=== PATIENT | female | born 1950 | race Caucasian/White ===

== ENCOUNTER 2020-01-23 14:02 | Outpatient (CLI) | payer MEDICARE, MEDICAID ==
[~2020-01-23 14:02] MED LIST: ABILIFY10 MG ORAL; ADALAT CC60 MG PO; ASPIRIN EC81 MG ORAL; BISACODYL5 MG ORAL; COLACE100 MG PO; CYMBALTA30 MG ORAL; FISH OIL500 MG PO; METHADONE HCL10 MG PO; MULTIVITAMINS1 EAC2 ORAL; NEURONTIN300 MG PO; NORVASC10 MG ORAL; RESTORIL7.5 MG ORAL; RESTORIL7.5 MG PO; RISPERDAL2 MG PO; TRICOR54 MG ORAL; VITAMIN C500 M1 ORAL; VITAMIN D1000 UNI1 ORAL
[2020-01-23 14:07] VITALS: BP 125/88
[2020-01-23] MEDS ORDERED: VASCEPA1 GM PO (14:14)
[2020-01-23] MEDS ORDERED: METHADONE HCL5 MG ORAL (14:14)
[2020-01-23] MEDS ORDERED: PRAVASTATIN SOD20 M1 ORAL (14:14)
--- NOTE | 2020-01-23 18:00 | Consultation ---
DATE OF CONSULTATION: 01/23/2020 GASTROLOGY CONSULTATION CHIEF COMPLAINT: Abdominal pain and diarrhea. HISTORY OF PRESENT ILLNESS: This is a very pleasant 69-year-old female known to me from 4 years ago. I have not seen her for over 4 years. She has been to the clinic complaining of a few days of watery diarrhea, severe abdominal pain, bloating, acid reflux, and heartburn. According to the patient, in 2018 she was admitted to [facility], where she had an endoscopy and colonoscopy. At that time, . Endoscopy showed evidence of significant candidal esophagitis. The patient apparently was doing well until a few days ago when she started having these symptoms. PAST MEDICAL HISTORY: 1. Hepatitis C, status post treatment. 2. Chronic GERD. 3. Gastritis. 4. History of pancreatic cyst. 5. Candidal esophagitis. ALLERGIES: No known drug allergies. MEDICATIONS: See medication reconciliation list. SOCIAL HISTORY: The patient denies any tobacco, alcohol, or drug abuse. Lives with her at home. FAMILY HISTORY: Noncontributory. REVIEW OF SYSTEMS: As above. PHYSICAL EXAMINATION: VITAL SIGNS: Temperature is 97, blood pressure is 125/88, pulse is 111, respirations 20. HEENT: Normocephalic and atraumatic. Sclerae anicteric. NECK: Supple. No obvious lymphadenopathy. CARDIOVASCULAR: Tachy. Regular rate plus S1-S2 normal. LUNGS: Clear to auscultation bilaterally ABDOMEN: Soft. Bowel sounds are present. There is no obvious tenderness to palpation. No rebound. No guarding. No peritoneal sign. EXTREMITIES: No cyanosis. No clubbing. No edema. ASSESSMENT/PLAN: A 69-year-old female with few days of diarrhea. According to her, [employer] was working for her well when this happened to her before and she wanted Flagyl. We will give her 500 mg t.i.d. for 10 days. Also, the patient complained of severe reflux disease. We will start the patient on omeprazole 40 mg daily. The patient is to come back in the office for followup after completion of treatment. Flo Hill M.D. DR: BLAIR JOB#: [id number] CC:
== END 2020-01-23 16:02 | disposition home or self-care (01) ==
LOC: PAN 14:02
DX: R10.9 Unspecified abdominal pain (principal); R19.7 Diarrhea, unspecified; Z86.19 Personal history of other infectious and parasitic diseases; K21.00 Gastro-esophageal reflux disease with esophagitis, without bleeding; R00.0 Tachycardia, unspecified
CPT/HCPCS: 99212

== ENCOUNTER 2020-03-26 13:59 | Outpatient (CLI) | payer MEDICARE, MEDICAID ==
[~2020-03-26 13:59] MED LIST changes: +METHADONE HCL5 MG ORAL; +PRAVASTATIN SOD20 M1 ORAL; +VASCEPA1 GM PO
[2020-03-26 14:13] VITALS: BP 130/80
[2020-03-27] MEDS ORDERED: ATIVAN1 MG ORAL (09:03)
== END 2020-03-26 15:17 | disposition home or self-care (01) ==
LOC: PAN 13:59
DX: R10.9 Unspecified abdominal pain (principal)
CPT/HCPCS: 99212

== ENCOUNTER 2020-03-31 07:36 | Day surgery (SDC) | payer MEDICARE, MEDICAID ==
[~2020-03-31] VITALS: Ht 162.6 cm; Wt 75.3 kg
[2020-03-31] VITALS (8 sets, daily range): BP systolic 94–123; BP diastolic 60–72
--- NOTE | 2020-03-31 07:35 | Anethesia Preoperative Eval ---
Anesthesia Pre-op PMH/ROS General Date of Evaluation: Mar 31, 2020 Time of Evaluation: 07:35 Anesthesiologist: enid ASA Score: ASA 4 Mallampati Score Class I : Soft palate, uvula, fauces, pillars visible Class II: Soft palate, uvula, fauces visible Class III: Soft palate, base of uvula visible Class IV: Only hard plate visible Mallampati Classification: Class II Surgeon: wilbur Diagnosis: gerd, pancreatic cyst Surgical Procedure: egd/eus Anesthesia History: none Social History: current smoker Family History: no anesthesia problems Allergies: Coded Allergies: No Known Allergies (Unverified , 05/03/12) Medications: see eMAR Patient NPO?: Yes Past Medical History Cardiovascular: Reports: HTN, other - hypercholesterolemia Gastrointestinal/Genitourinary: Reports: other - pancreatic cyst, esophagitis, gallbladder disease, hepatitis, cirrhosis, hx/o anuria, fibroids, abdominal pain Neurologic/Psychiatric: Reports: CVA, depression/anxiety Endocrine: Reports: hypothyroidism HEENT: Reports: other - decreased visual acuity Musculoskeletal/Integumentary: Reports: other PSxH Narrative: thyroidectomy Anesthesia Pre-op Phys. Exam Physician Exam Last Vital Signs Date Time Temp Pulse Resp B/P (MAP) Pulse Ox O2 Delivery O2 Flow Rate FiO2 03/31/20 08:35 Room Air 03/31/20 08:22 97.3 69 20 123/69 98 Constitutional: NAD Neurologic: CN 2-12 intact Cardiovascular: RRR Respiratory: CTA Gastrointestinal: S/NT/ND Airway Exam Mallampati Score: Class II MO: limited Neck: flexible TMD: 2fb ROM: limited Teeth: missing Dentures: upper, lower Anesthesia Pre-op A/P Labs Microbiology Date/Time Source Procedure Growth Status 03/31/20 08:10 Nasopharynx SARS-CoV-2 RdRp Gene Assay - Final Complete Labs Test 03/31/20 08:30 White Blood Count 8.7 K/UL (4.8-10.8) Red Blood Count 4.10 M/UL (4.20-5.40) Hemoglobin 13.0 G/DL (12.0-16.0) Hematocrit 37.0 % (37.0-47.0) Mean Corpuscular Volume 90 FL (80-99) Mean Corpuscular Hemoglobin 31.6 PG (27.0-31.0) Mean Corpuscular Hemoglobin Concent 35.1 G/DL (32.0-36.0) Red Cell Distribution Width 13.8 % (11.6-14.8) Platelet Count 202 K/UL (150-450) Mean Platelet Volume 8.3 FL (6.5-10.1) Neutrophils (%) (Auto) 52.2 % (45.0-75.0) Lymphocytes (%) (Auto) 32.2 % (20.0-45.0) Monocytes (%) (Auto) 10.8 % (1.0-10.0) Eosinophils (%) (Auto) 3.4 % (0.0-3.0) Basophils (%) (Auto) 1.4 % (0.0-2.0) Sodium Level 138 MMOL/L (136-145) Potassium Level 3.7 MMOL/L (3.5-5.1) Chloride Level 103 MMOL/L (98-107) Carbon Dioxide Level 30 MMOL/L (21-32) Anion Gap 5 mmol/L (5-15) Blood Urea Nitrogen 14 mg/dL (7-18) Creatinine 0.6 MG/DL (0.55-1.30) Estimat Glomerular Filtration Rate > 60 mL/min (>60) Glucose Level 86 MG/DL (74-106) Calcium Level 8.4 MG/DL (8.5-10.1) Total Bilirubin 0.5 MG/DL (0.2-1.0) Aspartate Amino Transf (AST/SGOT) 28 U/L (15-37) Alanine Aminotransferase (ALT/SGPT) 34 U/L (12-78) Alkaline Phosphatase 64 U/L (46-116) Total Protein 7.8 G/DL (6.4-8.2) Albumin 3.7 G/DL (3.4-5.0) Globulin 4.1 g/dL Albumin/Globulin Ratio 0.9 (1.0-2.7) Amylase Level 51 U/L (25-115) Lipase 118 U/L (73-393) Studies Pre-op Studies: EKG - nsr Risk Assessment & Plan Assessment: asa4 Plan: mac Status Change Before Surgery: No Pre-Antibiotics Drug: Odalys Randolph MD Mar 31, 2020 07:35
[~2020-03-31 07:36] MED LIST changes: +ATIVAN1 MG ORAL
[2020-03-31] MEDS ORDERED: LR 1000ml ONE ×2 (07:37)
[2020-03-31] MEDS ORDERED: Lidocaine 1% MPF 10mg/ml 5ml ONE (07:37)
[2020-03-31] MEDS ORDERED: Atropine Inj 1mg/10ml Syr IVP PRN (07:45)
[2020-03-31] MEDS ORDERED: DiphenhydrAMINE 50mg/ml Inj IVP PRN (07:45)
[2020-03-31] MEDS ORDERED: LR 1000ml 1,000 ML IVLG SCH ×2 (07:45→09:00)
[2020-03-31] MEDS ORDERED: Midazolam 2mg/2ml Inj IVP PRN (07:45)
[2020-03-31] MEDS ORDERED: fentaNYL 100 mcg/2 mL IV PRN (07:45)
[2020-03-31 08:44] LABS: BASOPHILS % (AUTO) 1.4 % (0.0-2.0); EOSINOPHILS % (AUTO) 3.4 % (0.0-3.0); LYMPHOCYTES % (AUTO) 32.2 % (20.0-45.0); MEAN CORPUSCULAR VOLUME 90 FL (80-99); MONOCYTES % (AUTO) 10.8 % (1.0-10.0); NEUTROPHILS % (AUTO) 52.2 % (45.0-75.0); PLATELET COUNT 202 K/UL (150-450); RED CELL DISTRIBUTION WIDTH 13.8 % (11.6-14.8); WHITE BLOOD COUNT 8.7 K/UL (4.8-10.8)
[2020-03-31 09:07] LABS: ANION GAP 5 mmol/L (5-15); BLOOD UREA NITROGEN 14 mg/dL (7-18); CALCIUM 8.4 MG/DL (8.5-10.1); CARBON DIOXIDE 30 MMOL/L (21-32); CHLORIDE 103 MMOL/L (98-107); CREATININE 0.6 MG/DL (0.55-1.30); POTASSIUM 3.7 MMOL/L (3.5-5.1); SODIUM 138 MMOL/L (136-145)
[2020-03-31 09:11] LABS: ALANINE AMINOTRANSFERASE 34 U/L (12-78); ALBUMIN 3.7 G/DL (3.4-5.0); ALBUMIN/GLOBULIN RATIO 0.9 (1.0-2.7); ALKALINE PHOSPHATASE 64 U/L (46-116); AMYLASE 51 U/L (25-115); ASPARTATE AMINO TRANSFERASE 28 U/L (15-37); BILIRUBIN,TOTAL 0.5 MG/DL (0.2-1.0)
--- NOTE | 2020-03-31 10:00 | Pre-Procedure Note/Attestation ---
Pre-Procedure Note/Attestation Complete Prior to Procedure Planned Procedure: not applicable Procedure Narrative: egd/EUS Indications for Procedure Pre-Operative Diagnosis: gerd, panc cyst Attestation I attest that I discussed the nature of the procedure; its benefits; risks and complications; and alternatives (and the risks and benefits of such alternatives), prior to the procedure, with the patient (or the patient's legal statement services representative). I attest that, if there was a reasonable possibility of needing a blood t ransfusion, the patient (or the patient's legal statement services representative) was given the [facility] standardized written summary, pursuant to the Mike Zita Blood Safety Act ([place] Health and Safety Code # 1645, as amended). I attest that I re-evaluated the patient just prior to the surgery and that there has been no change in the patient's H&P, except as documented below: Flo Hill MD Mar 31, 2020 10:00
--- NOTE | 2020-03-31 10:02 | Short Stay Surgery H&P ---
History of Present Illness History of Present Illness Chief Complaint pancreatitis, dilated PD HPI Noa Milton is a 69 year old female who was admitted on for GERD Patient History Allergies: Coded Allergies: No Known Allergies (Unverified , 05/03/12) PAST MEDICAL HISTORY: (1) Abdominal pain (2) Pancreatic cyst (3) Hypertension (4) Hepatitis C (5) Hx of hysterectomy Medication History Scheduled Amlodipine Besylate (Norvasc), 20 MG ORAL DAILY, (Reported) Ascorbic Acid* (Vitamin C*), 500 MG ORAL DAILY, (Reported) Aspirin Ec* (Aspirin Ec*), 81 MG ORAL DAILY, (Reported) Cholecalciferol (Vitamin D3)* (Vitamin D*), 1,000 UNIT ORAL DAILY, (Reported) Icosapent Ethyl (Vascepa), 2 GM PO DAILY, (Reported) Lorazepam* (Ativan*), 1 MG ORAL BEDTIME, (Reported) Methadone Hcl* (Methadone*), 40 MG ORAL DAILY, (Reported) Multivitamins* (Multivitamins*), 1 TAB ORAL DAILY, (Reported) [place]-3 Fatty Acids (Fish Oil), 1,200 MG PO DAILY, (Reported) Pravastatin Sod* (Pravastatin Sod*), 20 MG ORAL BEDTIME, (Reported) Discontinued Medications Temazepam* (Restoril*), 7.5 MG ORAL BEDTIME, (Reported) Discontinued Reason: Pt stopped taking med Review of Systems Cardiovascular: Reports: no symptoms Respiratory: Reports: no symptoms Skeletal: Reports: no symptoms Gastrointestinal: Reports: see HPI Genitourinary: Reports: no symptoms Neurologic: Reports: no symptoms Hematologic: Reports: no symptoms Physical Exam Vital Signs Last Vital Signs Date Time Temp Pulse Resp B/P (MAP) Pulse Ox O2 Delivery O2 Flow Rate FiO2 03/31/20 08:35 Room Air 03/31/20 08:22 97.3 69 20 123/69 98 Labs Laboratory Tests Test 03/31/20 08:30 White Blood Count 8.7 K/UL (4.8-10.8) Red Blood Count 4.10 M/UL (4.20-5.40) L Hemoglobin 13.0 G/DL (12.0-16.0) Hematocrit 37.0 % (37.0-47.0) Mean Corpuscular Volume 90 FL (80-99) Mean Corpuscular Hemoglobin 31.6 PG (27.0-31.0) H Mean Corpuscular Hemoglobin Concent 35.1 G/DL (32.0-36.0) Red Cell Distribution Width 13.8 % (11.6-14.8) Platelet Count 202 K/UL (150-450) Mean Platelet Volume 8.3 FL (6.5-10.1) Neutrophils (%) (Auto) 52.2 % (45.0-75.0) Lymphocytes (%) (Auto) 32.2 % (20.0-45.0) Monocytes (%) (Auto) 10.8 % (1.0-10.0) H Eosinophils (%) (Auto) 3.4 % (0.0-3.0) H Basophils (%) (Auto) 1.4 % (0.0-2.0) Sodium Level 138 MMOL/L (136-145) Potassium Level 3.7 MMOL/L (3.5-5.1) Chloride Level 103 MMOL/L (98-107) Carbon Dioxide Level 30 MMOL/L (21-32) Anion Gap 5 mmol/L (5-15) Blood Urea Nitrogen 14 mg/dL (7-18) Creatinine 0.6 MG/DL (0.55-1.30) Estimat Glomerular Filtration Rate > 60 mL/min (>60) Glucose Level 86 MG/DL (74-106) Calcium Level 8.4 MG/DL (8.5-10.1) L Total Bilirubin 0.5 MG/DL (0.2-1.0) Aspartate Amino Transf (AST/SGOT) 28 U/L (15-37) Alanine Aminotransferase (ALT/SGPT) 34 U/L (12-78) Alkaline Phosphatase 64 U/L (46-116) Total Protein 7.8 G/DL (6.4-8.2) Albumin 3.7 G/DL (3.4-5.0) Globulin 4.1 g/dL Albumin/Globulin Ratio 0.9 (1.0-2.7) L Amylase Level 51 U/L (25-115) Lipase 118 U/L (73-393) Carcinoembryonic Antigen Pending CA 19-9 Antigen Pending Skin: normal HENT: normal Heart: normal Lungs: normal Abdomen: normal Extremities: normal Plan Plan of Care esophagogastroduodenoscopy and EUS Attestation Are the patient's medical conditions optimized for surgery? Attestation Response: yes Flo Hill MD Mar 31, 2020 10:02
--- NOTE | 2020-03-31 10:51 | Endoscopy Procedure Note ---
Endoscopy Procedure Note General Indication for Procedure: gib, GERD, dilated CBD and PD Procedures Performed: EGD, other - EUS Operative Findings/Diagnosis: gastritis Specimen: yes Pt Tolerated Procedure Well: Yes Estimated Blood Loss: none Anesthesia Anesthesiologist: shivani Anesthesia: MAC Inserted Devices Implant(s) used?: No GI Core Measures 50 yrs or older w/o bx or poly: Not Applicable 10yrs. F/U recommended: Not Applicable Flo Hill MD Mar 31, 2020 10:51
--- NOTE | 2020-03-31 11:03 | Immediate Post-Op Evaluation ---
Immediate Post-Op Evalulation Immediate Post-Op Evalulation Procedure: eus/egd w/bx Date of Evaluation: Mar 31, 2020 Time of Evaluation: 11:02 IV Fluids: 350ml lr Blood Products: none Estimated Blood Loss: negligible Blood Pressure Systolic: 97 Blood Pressure Diastolic: 66 Pulse Rate: 67 Respiratory Rate: 18 O2 Sat by Pulse Oximetry: 98 Temperature (Fahrenheit): 97.0 Pain Score (1-10): 0 Nausea: No Vomiting: No Complications none Patient Status: awake, reacts, patent Hydration Status: adequate Drug: Odalys Randolph MD Mar 31, 2020 11:03
--- NOTE | 2020-03-31 11:04 | 48 Hour Post Anesthesia Eval ---
Post Anesthesia Evaluation Procedure: eus/egd w/bx Date of Evaluation: Mar 31, 2020 Time of Evaluation: 11:04 Blood Pressure Systolic: 100 0: 67 Pulse Rate: 66 Respiratory Rate: 18 Temperature (Fahrenheit): 97.0 O2 Sat by Pulse Oximetry: 98 Airway: patent Nausea: No Vomiting: No Pain Intensity: 0 Hydration Status: adequate Cardiopulmonary Status: stable Mental Status/LOC: patient returned to baseline Post-Anesthesia Complications: none Follow-up care needed: N/A Odalys Mathews MD Mar 31, 2020 11:04
--- NOTE | 2020-03-31 16:33 | Procedure Note ---
DATE OF PROCEDURE: 03/31/2020 SURGEON: Flo Hill MD PROCEDURE: Upper endoscopy with biopsy and EUS. ANESTHESIA: Per Dr. Dumont. INSTRUMENT: Olympus adult flexible upper endoscope and EUS scope. INDICATIONS: 1. Dilated pancreatic duct. 2. Dilated common bile duct. 3. Abdominal pain. 4. Black tarry stools. The procedure, risks, benefits, and possible consequences, including hemorrhage, aspiration, perforation and infection, and alternative treatments, were explained to the patient/legal guardian by Dr. Flo Hill and the patient/legal guardian understood and accepted these risks. PROCEDURE IN DETAIL: After informed consent was obtained and the patient was adequately sedated, Olympus upper endoscope was advanced from the mouth into the second portion of the duodenum and retroflexion was performed in the stomach. The patient had evidence of atrophic gastritis, mild to moderate. Random biopsies from antrum were obtained to rule out H. pylori infection. The rest of upper endoscopic examination grossly within normal limit. At this time, the upper endoscope was retrieved and then the EUS scope was introduced. Starting scanning at GE junction, the celiac axis was seen without any obvious celiac axis lymphadenopathy. The pancreatic parenchyma looked normal within body and tail of the pancreas. The pancreatic duct measured about 2.5 mm in the body of the pancreas and about 3 mm in the genu of the pancreas. Then, the scope was advanced to the duodenal bulb and second portion of the duodenum. Gallbladder was seen without any obvious stone or gallbladder wall thickening. Common bile duct was dilated. Maximum dilation proximally was 1 cm. As we get close to the ampulla, it went down to about 4.5 mm. The pancreatic duct was dilated at the ampulla about 7 mm and tapered down to about 3 or 4 as we went away from the ampulla. No obvious mass was seen. The patient tolerated the procedure very well without any complication. SUMMARY OF FINDINGS: 1. Atrophic gastritis, status post biopsy. 2. Dilated pancreatic duct and common bile duct without any obvious ampullary mass or gallstones. The patient has right upper quadrant pain, which is suggestive of papillary stenosis, although it is uncommon having papillary stenosis while we have a gallbladder. RECOMMENDATIONS: 1. Follow pathology. 2. We will recommend ERCP if the patient has persistent abdominal pain consistent with biliary source. I want to thank Dr. Poonam Prince for this kind referral. Flonicol Hill M.D. DR: Tc JOB#: [id number] CC: Poonam Prince M.D.; Fax#: [phone]
== END 2020-03-31 12:25 | disposition home or self-care (01) ==
LOC: GAS 07:36
DX: R10.9 Unspecified abdominal pain (principal); K92.1 Melena; K86.89 Other specified diseases of pancreas; K29.40 Chronic atrophic gastritis without bleeding; I10 Essential (primary) hypertension; Z90.710 Acquired absence of both cervix and uterus; Z86.19 Personal history of other infectious and parasitic diseases; Z79.82 Long term (current) use of aspirin; Z79.899 Other long term (current) drug therapy; F17.200 Nicotine dependence, unspecified, uncomplicated; E78.00 Pure hypercholesterolemia, unspecified; F32.9 Major depressive disorder, single episode, unspecified; F41.9 Anxiety disorder, unspecified; E03.9 Hypothyroidism, unspecified; E89.0 Postprocedural hypothyroidism; K31.9 Disease of stomach and duodenum, unspecified
CPT/HCPCS: 36415; 43231; 43239; 80053; 82150; 82378; 83690; 85025; 94003; J2704; J7120; U0002; 94150